=== PATIENT | female | born 1990 | race Caucasian/White ===

== ENCOUNTER 2017-11-21 10:11 | Emergency (ER) | payer MEDICAID, OTHER ==
[~2017-11-21] VITALS: Ht 172.7 cm; Wt 60.0 kg
[2017-11-21 10:20] VITALS: BP 129/75
== END 2017-11-21 14:05 | disposition left against medical advice (07) ==
LOC: ER 10:11
DX: R51 Headache (principal); Z53.21 Procedure and treatment not carried out due to patient leaving prior to being seen by health care provider